=== PATIENT | male | born 1995 | race Caucasian/White ===

== ENCOUNTER 2017-03-06 13:04 | Emergency (ER) | payer SELFPAY ==
--- NOTE | 2017-03-06 14:08 | ER Document Report ---
ED Medical Screen (RME) - General Chief Complaint: Cold Symptoms Stated Complaint: VOMITING Notes: Patient was sent to the emergency room for evaluation of left lower quadrant pain and vomiting for 1 week. paperwork sent with patient states he is acutely tender on exam. He also has a fever and a cough, with rails and decreased breath sounds in the left lower lung leslie per paperwork. I have greeted and performed a rapid initial assessment of this patient. A comprehensive ED assessment and evaluation of the patient, analysis of test results and completion of the medical decision making process will be conducted by additional ED providers. TRAVEL OUTSIDE OF THE [place] IN LAST 30 DAYS: No - Related Data Allergies/Adverse Reactions: No Known Allergies Allergy (Unverified 03/06/17 13:24) Past Medical History - Social History Frequency of alcohol use: None Drug Abuse: None Renal/ Medical History: Denies: Hx Peritoneal Dialysis Surgical Hx: Negative Physical Exam - Vital signs Vitals: Temp Pulse Resp BP Pulse Ox 98.5 F 87 16 165/84 H 98 03/06/17 13:24 03/06/17 13:24 03/06/17 13:24 03/06/17 13:24 03/06/17 13:24 Course - Vital Signs Vital signs: Temp Pulse Resp BP Pulse Ox 98.5 F 87 16 165/84 H 98 03/06/17 13:24 03/06/17 13:24 03/06/17 13:24 03/06/17 13:24 03/06/17 13:24
[2017-03-06 14:57] LABS: ABSOLUTE LYMPHOCYTES (AUTO) 2.2 10^3/uL (0.5-4.7); ABSOLUTE MONOCYTES (AUTO) 0.6 10^3/uL (0.1-1.4); MEAN CORPUSCULAR VOLUME 87 fl (80-97); RED CELL DISTRIBUTION WIDTH 12.3 % (11.5-14.0)
[2017-03-06 15:07] LABS: ABSOLUTE EOSINOPHILS # (AUTO) 0.2 10^3/uL (0.0-0.6); ABSOLUTE NEUT (AUTO) 3.3 10^3/uL (1.7-8.2); BASOPHILS % (AUTO) 0.7 % (0-2); EOSINOPHILS % (AUTO) 3.5 % (0-6); LYMPHOCYTES % (AUTO) 34.8 % (13-45); MEAN CORPUSCULAR HEMOGLOBIN 30.7 pg (27.0-33.4); MEAN CORPUSCULAR HGB CONC 35.2 g/dL (32.0-36.0); MONOCYTES % (AUTO) 8.9 % (3-13); RED BLOOD COUNT 5.85 10^6/uL (4.35-5.55); SEGMENTED NEUTROPHILS % (AUTO) 52.1 % (42-78); WHITE BLOOD COUNT 6.4 10^3/uL (4.0-10.5)
[2017-03-06 15:18] LABS: ALANINE AMINOTRANSFERASE 72 U/L (21-72); ALBUMIN 4.7 g/dL (3.5-5.0); ALKALINE PHOSPHATASE 97 U/L (38-126); ANION GAP 14 (5-19); ASPARTATE AMINO TRANSFERASE 47 U/L (17-59); BILIRUBIN,DIRECT 0.3 mg/dL (0.0-0.4); BILIRUBIN,TOTAL 0.6 mg/dL (0.2-1.3); BLOOD UREA NITROGEN 19 mg/dL (7-20); CALCIUM 9.8 mg/dL (8.4-10.2); CARBON DIOXIDE 26 mmol/L (22-30); CHLORIDE 102 mmol/L (98-107); CREATININE RESULT 0.91 mg/dL (0.52-1.25); GLUCOSE 98 mg/dL (75-110); LIPASE 42.5 U/L (23-300); POTASSIUM 4.7 mmol/L (3.6-5.0); SODIUM 141.9 mmol/L (137-145); TOTAL PROTEIN 8.4 g/dL (6.3-8.2)
[2017-03-06 15:21] LABS: APPEARANCE,URINE TURBID; BILIRUBIN,URINE NEGATIVE (NEGATIVE); GLUCOSE, URINE NEGATIVE (NEGATIVE); KETONES,URINE NEGATIVE (NEGATIVE); LEUKOCYTE ESTERASE,URINE NEGATIVE (NEGATIVE); NITRITE,URINE NEGATIVE (NEGATIVE); PROTEIN,URINE NEGATIVE (NEGATIVE); URINE SPECIFIC GRAVITY 1.026; UROBILINOGEN,URINE NEGATIVE mg/dL (<2.0)
[2017-03-06] MEDS ORDERED: CEFTRIAXONE 1 GM/D5W RTU 50 ML IV ONE (15:56)
--- NOTE | 2017-03-06 15:59 | ER Document Report ---
ED General - General Chief Complaint: Cold Symptoms Stated Complaint: VOMITING Mode of Arrival: Ambulatory Information source: Patient Notes: This is a 21-year-old previously healthy male who presents with a 6 day history of cough, congestion, nausea and vomiting. He is also had subjective fevers at home. He is also had cough and congestion. He was seen today at his primary care and was referred to the emergency department for further evaluation for possible pneumonia. He states that he last ate at breakfast, but vomited later. He has had no diarrhea. He denies any dysuria or hematuria. He states that at the primary care office, he noted left sided abdominal tenderness during exam and that area has been sore since. TRAVEL OUTSIDE OF THE [place] IN LAST 30 DAYS: No - Related Data Allergies/Adverse Reactions: No Known Allergies Allergy (Unverified 03/06/17 13:24) Past Medical History - General Information source: Patient - Social History Smoking Status: Current Every Day Smoker Frequency of alcohol use: None Drug Abuse: None Family History: Reviewed & Not Pertinent Patient has suicidal ideation: No Patient has homicidal ideation: No - Medical History Medical History: Negative Renal/ Medical History: Denies: Hx Peritoneal Dialysis Surgical Hx: Negative Review of Systems - Review of Systems Notes: REVIEW OF SYSTEMS: CONSTITUTIONAL : As per history of present illness EENT: Denies eye, ear, throat, or mouth pain or symptoms. Denies nasal or sinus congestion. CARDIOVASCULAR: Denies chest pain. RESPIRATORY: Cough as per history of present illness. Denies shortness of breath, difficulty breathing, or wheezing. GASTROINTESTINAL: As per history of present illness: GENITOURINARY: Denies difficulty urinating, painful urination, burning, frequency, or blood in urine. MUSCULOSKELETAL: Denies neck or back pain or joint pain or swelling. SKIN: Denies rash or skin lesions. HEMATOLOGIC : Denies easy bruising or bleeding. LYMPHATIC: Denies swollen, enlarged glands. NEUROLOGICAL: Denies altered mental status or loss of consciousness. Denies headache. PSYCHIATRIC: Denies anxiety or stress or depression. ALL OTHER SYSTEMS REVIEWED AND NEGATIVE. Physical Exam - Vital signs Vitals: Temp Pulse Resp BP Pulse Ox 98.5 F 87 16 165/84 H 98 03/06/17 13:24 03/06/17 13:24 03/06/17 13:24 03/06/17 13:24 03/06/17 13:24 - Notes Notes: PHYSICAL EXAMINATION: GENERAL: Well-appearing, well-nourished and in no acute distress. Pleasant and conversant HEAD: Atraumatic, normocephalic. EYES: Pupils equal round and reactive to light, extraocular movements intact, sclera anicteric, conjunctiva are normal. ENT: nares patent, oropharynx clear without exudates. Moist mucous membranes. NECK: Normal range of motion, supple without lymphadenopathy LUNGS: Breath sounds clear to auscultation bilaterally and equal. No wheezes rales or rhonchi. HEART: Regular rate and rhythm without murmurs ABDOMEN: Soft, normoactive bowel sounds. Tender to palpation in the left lower quadrant and left flank. No peritoneal signs. No guarding, no rebound. No masses appreciated. EXTREMITIES: Normal range of motion, no pitting or edema. No cyanosis. NEUROLOGICAL: Cranial nerves grossly intact. Normal speech. No gross focal motor or sensory deficits appreciated. PSYCH: Normal mood, normal affect. SKIN: Warm, Dry, normal turgor, no rashes or lesions noted. Course - Re-evaluation Re-evalutation: 03/06/17 17:28 Patient has been resting comfortably during his ER stay. CT and lab results reviewed. There is no acute finding on the CT exam. Urinalysis does show 10 white blood cells as well as a few white blood cell clumps. Patient received IV Rocephin in the emergency department and will be discharged with oral antibiotics for urinary tract infection. He is encouraged to follow up with his primary care physician. Strict return precautions were discussed. - Vital Signs Vital signs: Temp Pulse Resp BP Pulse Ox 97.2 F 58 L 18 141/77 H 99 03/06/17 18:53 03/06/17 18:53 03/06/17 18:53 03/06/17 18:53 03/06/17 18:53 - Laboratory Result Diagrams: 03/06/17 14:30 03/06/17 14:30 Laboratory results interpreted by me: 03/06/17 03/06/17 03/06/17 14:30 14:30 14:47 RBC 5.85 H Hgb 18.0 H Total Protein 8.4 H Urine Blood SMALL H Discharge - Discharge Clinical Impression: Abdominal pain in male, Elevated blood pressure reading UTI (urinary tract infection) Qualifiers: Urinary tract infection type: site unspecified Hematuria presence: without hematuria Qualified Code(s): N39.0 - Urinary tract infection, site not specified Condition: Stable Disposition: HOME, SELF-CARE Additional Instructions: ABDOMINAL PAIN: There are many causes of abdominal pain. Pain can mean a serious problem requiring surgery (such as appendicitis). It can also be an innocent problem that goes away on its own (such as a viral infection). Often, time must pass to determine the cause of pain. The physician does not feel that hospitalization is necessary, at present. Things may change within the next 24 hours. Call the doctor or come back for re- examination if any problems occur, such as: (1) Pain that becomes more severe, steady, or becomes concentrated in one specific area. Also, pain that is more severe with movement or coughing. (2) Vomiting that persists or becomes more frequent. (3) Blood in the vomitus, urine, or bowel movements. Blood in the stool may have a tarry or black appearance. (4) Shaking chills or fever greater than 100 degrees F. (5) The abdomen becomes more distended or swollen. (6) Bowel movements cease. (7) Failure to improve as expected. TORADOL INJECTION: You have been given an injection of ketorolac tromethamine (Toradol). This is an excellent, safe drug for pain control. It also has potent antiinflammatory action. You should have significant pain relief within about one hour. Toradol is not addicting and is non-sedating. It does not interfere with driving or work. Call or return if you develop itching, hives, shortness of breath, or rash. ANTINAUSEA MEDICATION: You have been given a medication to suppress nausea and vomiting. This type of medication can be given as a shot, pill, or suppository. It will usually last for many hours. Pills and shots usually last six to eight hours, suppositories last about 12 hours. For the typical illness, only one or two doses of the medication may be necessary. Mild lightheadedness may occur. This type of medicine can cause drowsiness. Do not drive or operate dangerous machinery while under its influence. Do not mix with alcohol. See your doctor at once if you have muscle spasms or tightness, or uncontrollable motions (particularly of the neck, mouth, or jaw). Persistent vomiting or severe lightheadedness should also be evaluated by the physician. URINARY TRACT INFECTION: Your evaluation indicates that you have a urinary tract infection. This is due to germs growing in the bladder. This is a common problem. This infection usually responds quickly to antibiotics. Your antibiotic should be taken exactly as prescribed. Drink plenty of fluids -- three to four quarts a day. Occasionally, a bladder anesthetic will be prescribed to help stop the feeling of urgency until the antibiotic has a chance to clear the infection. This may cause your urine to be dark orange. Certain urine infections require a culture. If the doctor obtained a culture, the results will be back in two days. You should call to see if a change in treatment is needed. A repeat urinalysis after you finish treatment is often recommended. The physician will let you know if further testing is required. Call the doctor if you develop fever, chills, flank pain, inability to urinate, or blood in the urine. ANTIBIOTIC THERAPY: You have been given an antibiotic prescription. It's important that you take all the medication, unless instructed otherwise by your physician. Failure to complete the entire course can result in relapse of your condition. Common side effects of antibiotics include nausea, intestinal cramping, or diarrhea. Women may develop vaginal yeast infections, and babies can get yeast (thrush) in the mouth following the use of antibiotics. Contact your physician if you develop significant side effects from this medication. Allergy to this antibiotic can result in hives, wheezing, faintness, or itching. If symptoms of allergy occur, stop the medication and call the doctor. LEVOFLOXACIN: You have been given an antibacterial agent, levofloxacin (Levaquin). This medicine is not related to the penicillins, sulfas, cephalosporins, or tetracyclines. It is often given to patients who are allergic to these drugs. It has been chosen for you either because other drugs are not appropriate, or because of the nature of your problem. Levaquin should not be taken with antacids, as these can decrease its effectiveness. It can be taken without regard to meals. LEVAQUIN SHOULD NOT BE TAKEN BY CHILDREN, NURSING WOMEN, OR WOMEN. Although Levaquin is usually well-tolerated, common side effects can include nausea and diarrhea. Contact your doctor if you experience any unusual symptoms while on this medication, such as joint pain or swelling, shortness of breath, wheezing, faintness, or hives. HIGH BLOOD PRESSURE, NOT TREAT: When your blood pressure was taken today it was elevated. We do not think you need to have your blood pressure treated today. Sometimes, stress or illness causes a temporary elevation of your blood pressure. We suggest that you get your blood pressure measured again during the next few days to see if this elevated blood pressure is more than a temporary abnormality. If your blood pressure is greater than 150/90 on each occasion, you must have treatment. Some simple things you can do to help are: If you have blood pressure medicine but aren't using it regularly, start taking it again. Get some aerobic exercise for at least 20 minutes on a daily basis. (See your doctor before beginning a new exercise program.) Eat a low-fat diet. Lose excess weight. Avoid salty foods and avoid adding salt to any of the foods you eat. Avoid diet pills, decongestants, "energizing" herbs, and other medicines that elevate blood pressure. If left untreated, hypertension greatly enhances your risk for developing heart disease and strokes. Please don't ignore this problem. FOLLOW-UP CARE: If you have been referred to a physician for follow-up care, call the physician s office for an appointment as you were instructed or within the next two days. If you experience worsening or a significant change in your symptoms, notify the physician immediately or return to the Emergency Department at any time for re-evaluation. Prescriptions: Levofloxacin [Levaquin 750 mg Tablet] 750 mg PO DAILY #7 tablet Promethazine HCl [Phenergan 25 mg Tablet] 1 tab PO Q8H PRN #10 tablet PRN Reason: Forms: Elevated Blood Pressure
[2017-03-06] MEDS ORDERED: KETOROLAC TROMETHAMINE INJ/PF 30 MG/1 ML SDV IV ONE (17:32)
[2017-03-06 18:54] VITALS: BP 141/77
== END 2017-03-06 18:58 | disposition home or self-care (01) ==
LOC: ER 13:04
DX: N39.0 Urinary tract infection, site not specified (principal); R05 Cough; R11.2 Nausea with vomiting, unspecified; R03.0 Elevated blood-pressure reading, without diagnosis of hypertension; F17.200 Nicotine dependence, unspecified, uncomplicated
CPT/HCPCS: 99284; 96375; 96365; 36415; 87040; 83690; 85025; 80053; 81001; 71020; 74177; J1885; J0696

== ENCOUNTER 2019-02-06 15:10 | Emergency (ER) | payer SELFPAY ==
--- NOTE | 2019-02-06 15:20 | ER Document Report ---
ED Medical Screen (RME) - General Chief Complaint: Cough Stated Complaint: COUGH Time Seen by Provider: 02/06/19 15:18 Mode of Arrival: Ambulatory Information source: Patient TRAVEL OUTSIDE OF THE [place] IN LAST 30 DAYS: No - HPI Patient complains to provider of: cough; fever Onset: Other - pt. with c/o cough, bodyaches, and low graade fever for the past 2-3 days. Worse today - Related Data Allergies/Adverse Reactions: No Known Allergies Allergy (Verified 02/06/19 15:12) Past Medical History Renal/ Medical History: Denies: Hx Peritoneal Dialysis Physical Exam - Vital signs Vitals: Temp Pulse Resp BP Pulse Ox 99.4 F 100 14 125/82 100 02/06/19 15:14 02/06/19 15:14 02/06/19 15:14 02/06/19 15:14 02/06/19 15:14 Course - Vital Signs Vital signs: Temp Pulse Resp BP Pulse Ox 99.4 F 100 14 125/82 100 02/06/19 15:14 02/06/19 15:14 02/06/19 15:14 02/06/19 15:14 02/06/19 15:14
[2019-02-06 16:13] LABS: ABSOLUTE LYMPHOCYTES (AUTO) 0.7 10^3/uL (0.5-4.7); ABSOLUTE MONOCYTES (AUTO) 1.1 10^3/uL (0.1-1.4); ABSOLUTE NEUT (AUTO) 5.2 10^3/uL (1.7-8.2); BASOPHILS % (AUTO) 0.3 % (0-2); EOSINOPHILS % (AUTO) 0.3 % (0-6); HEMATOCRIT 48.4 % (37.9-51.0); HEMOGLOBIN 17.3 g/dL (13.5-17.0); LYMPHOCYTES % (AUTO) 9.5 % (13-45); MEAN CORPUSCULAR HEMOGLOBIN 31.6 pg (27.0-33.4); MEAN CORPUSCULAR HGB CONC 35.8 g/dL (32.0-36.0); MEAN CORPUSCULAR VOLUME 88 fl (80-97); MONOCYTES % (AUTO) 16.2 % (3-13); PLATELET COUNT 197 10^3/uL (150-450); RED BLOOD COUNT 5.48 10^6/uL (4.35-5.55); RED CELL DISTRIBUTION WIDTH 12.3 % (11.5-14.0); SEGMENTED NEUTROPHILS % (AUTO) 73.7 % (42-78); TOTAL CELLS COUNTED % (AUTO) 100 %
--- NOTE | 2019-02-06 16:23 | RADIOLOGY REPORT (SQ) ---
EXAM DESCRIPTION: CHEST 2 VIEWS COMPLETED DATE/TIME: 02/06/2019 4:15 pm REASON FOR STUDY: cough; fever COMPARISON: Two-view chest 03/06/2017 EXAM PARAMETERS: NUMBER OF VIEWS: two views TECHNIQUE: Digital Frontal and Lateral radiographic views of the chest acquired. RADIATION DOSE: NA LIMITATIONS: none FINDINGS: LUNGS AND PLEURA: No opacities, masses or pneumothorax. No pleural effusion. MEDIASTINUM AND HILAR STRUCTURES: No masses or contour abnormalities. HEART AND VASCULAR STRUCTURES: Heart normal size. No evidence for failure. BONES: No acute findings. HARDWARE: None in the chest. OTHER: No other significant finding. IMPRESSION: NO ACUTE RADIOGRAPHIC FINDING IN THE CHEST. TECHNICAL DOCUMENTATION: JOB ID: [id number] [employer]- All Rights Reserved Reading location - IP/workstation name: [email or web address]
[2019-02-06 16:24] LABS: A TYPE INFLUENZA AG POSITIVE (NEGATIVE); B INFLUENZA AG NEGATIVE (NEGATIVE)
[2019-02-06 16:32] LABS: ALANINE AMINOTRANSFERASE 56 U/L (21-72); ALBUMIN 4.5 g/dL (3.5-5.0); ALKALINE PHOSPHATASE 74 U/L (38-126); ANION GAP 11 (5-19); ASPARTATE AMINO TRANSFERASE 33 U/L (17-59); BILIRUBIN,DIRECT 0.2 mg/dL (0.0-0.4); BILIRUBIN,TOTAL 0.8 mg/dL (0.2-1.3); BLOOD UREA NITROGEN 17 mg/dL (7-20); CARBON DIOXIDE 25 mmol/L (22-30); CHLORIDE 102 mmol/L (98-107); GLUCOSE 93 mg/dL (75-110); POTASSIUM 4.2 mmol/L (3.6-5.0); SODIUM 137.7 mmol/L (137-145)
--- NOTE | 2019-02-06 16:55 | ER Document Report ---
ED General - General Chief Complaint: Cough Stated Complaint: COUGH Time Seen by Provider: 02/06/19 15:18 Mode of Arrival: Ambulatory Notes: Patient is a 23-year-old male who presents to the emergency department with a chief complaint of a cough and vomiting. His symptoms started about 6 days ago. He states that he has also been throwing up on and off. The last time he vomited was last night. He also complains of chills, body aches, and a possible fever, but has not checked his temperature. Last time he took some ibuprofen was on . He does smoke a pack of cigarettes every 2-3 days. Admits to marijuana use. TRAVEL OUTSIDE OF THE [place] IN LAST 30 DAYS: No - Related Data Allergies/Adverse Reactions: No Known Allergies Allergy (Verified 02/06/19 15:12) Past Medical History - General Information source: Patient - Social History Smoking Status: Current Every Day Smoker Family History: Reviewed & Not Pertinent Patient has suicidal ideation: No Patient has homicidal ideation: No Renal/ Medical History: Denies: Hx Peritoneal Dialysis Review of Systems - Review of Systems Notes: REVIEW OF SYSTEMS: CONSTITUTIONAL : See HPI EENT: See HPI CARDIOVASCULAR: Denies chest pain. RESPIRATORY: See HPI GASTROINTESTINAL: See HPI GENITOURINARY: Denies difficulty urinating, burning, blood in urine, urgency or frequency. MUSCULOSKELETAL: Denies neck and back pain. Denies joint pain or swelling. SKIN: Denies rash, itchiness, or lesions HEMATOLOGIC : Denies easy bruising or bleeding. LYMPHATIC: Denies swollen, painful, enlarged glands. NEUROLOGICAL: Denies no numbness or tingling denies weakness. Denies headache. Denies altered mental status. Denies alteration in speech. PSYCHIATRIC: Denies stress, anxiety, alteration in sleep patterns, or depression. All other systems reviewed and negative. Physical Exam - Vital signs Vitals: Temp Pulse Resp BP Pulse Ox 99.4 F 100 14 125/82 100 02/06/19 15:14 02/06/19 15:14 02/06/19 15:14 02/06/19 15:14 02/06/19 15:14 - Notes Notes: PHYSICAL EXAMINATION: GENERAL: Appears ill, healthy, well-nourished, no acute distress. HEAD: Normocephalic, atraumatic. EYES: PERRL, conjunctiva normal, all extraocular movements intact, sclera nonicteric ENT: Moist mucous membranes. NECK: Supple, no noticeable swelling, redness, rash. Normal range of motion. LUNGS: Equal breath sounds bilaterally and clear to auscultation. No wheezes rales or rhonchi. CARDIOVASCULAR: S1-S2, regular rate, regular rhythm. Radial pulses 2+, normal. ABDOMEN: Normoactive bowel sounds. Soft, nontender, no guarding, no rebound tenderness, and no masses palpated. EXTREMITIES: Normal strength and range of motion, no pitting or edema. No cyanosis. NEUROLOGICAL: Moves all extremities upon command. Strength 5/5 in all extremities. PSYCH: Normal mood, normal affect. SKIN: Warm, dry. No rash, lesions, ulcerations noted. Normal skin turgor. Course - Re-evaluation Re-evalutation: 02/06/19 16:55 Patient's chest x-ray is negative for any acute findings. No pneumonia noted. He does have a positive influenza screen. His hematology is unremarkable, other than his hemoglobin being 17, which is most likely due to dehydration. 02/06/19 17:18 I have discussed with the patient that he has the flu. He will home with Tessalon Perles, ibuprofen, Tylenol, oral hydration, and supportive care. He is in agreement with this plan. Verbal discharge instructions were given to the patient. They verbalized understanding. They are stable for discharge. - Vital Signs Vital signs: Temp Pulse Resp BP Pulse Ox 98.5 F 92 18 144/83 H 95 02/06/19 17:33 02/06/19 17:33 02/06/19 17:33 02/06/19 17:33 02/06/19 17:33 - Laboratory Result Diagrams: 02/06/19 15:51 02/06/19 15:51 Laboratory results interpreted by me: 02/06/19 15:51 Hgb 17.3 H Lymphocytes % 9.5 L Monocytes % 16.2 H Discharge - Discharge Clinical Impression: Influenza A, Cough Vomiting Qualifiers: Vomiting type: unspecified Vomiting Intractability: non-intractable Nausea presence: with nausea Qualified Code(s): R11.2 - Nausea with vomiting, unspecified Condition: Stable Disposition: HOME, SELF-CARE Instructions: Influenza ([facility]) [id number], Viral Syndrome ([facility]), Vomiting ([facility]) Additional Instructions: You were seen today in the emergency department for a cough, vomiting, and pain in your chest. You have the flu. The flu can last 7-10 days. Treatment for the flu is supportive care. Take acetaminophen 1000 mg and ibuprofen 600 mg every 6 hours for pain/fever. You have been given Tessalon Perles, medication for your cough. Take as directed. You have also been given Zofran, medication for nausea and vomiting. You may take 1 tablet every 4-6 hours as needed for nausea or vomiting. If you have worsening symptoms, develop shortness of breath, are unable to eat or drink, or have any symptoms that are worrisome to you, please return to the emergency department. Smoking both cigarettes and marijuana makes it harder to recover from the flu. Please think about quitting both of these to help with your overall health and decrease your risk of stroke and heart attack. Prescriptions: Benzonatate [Tessalon Perle 100 mg Capsule] 100 mg PO Q8HP PRN #40 cap PRN Reason: Forms: Smoking Cessation Education
[2019-02-06] MEDS ORDERED: BENZONATATE 100 MG CAPSULE PO ONE (17:14)
[2019-02-06] MEDS ORDERED: ACETAMINOPHEN 325 MG TABLET PO ONE (17:14)
[2019-02-06] MEDS ORDERED: IBUPROFEN 600 MG TABLET PO ONE (17:14)
[2019-02-06] MEDS ORDERED: ONDANSETRON ODT 4 MG TAB (6 TAB/ER DISP) PO PRN (17:15)
[2019-02-06 17:33] VITALS: BP 144/83
== END 2019-02-06 17:37 | disposition home or self-care (01) ==
LOC: ER 15:10
DX: J10.1 Influenza due to other identified influenza virus with other respiratory manifestations (principal); R05 Cough; R11.2 Nausea with vomiting, unspecified; R68.83 Chills (without fever); R52 Pain, unspecified; F17.210 Nicotine dependence, cigarettes, uncomplicated
CPT/HCPCS: 36415; 71046; 80053; 85025; 87804; 99283

== ENCOUNTER 2019-12-03 18:30 | Emergency (ER) | payer SELFPAY ==
[2019-12-03] MEDS ORDERED: ACETAMINOPHEN 325 MG TABLET PO ONE (20:24)
[2019-12-03] MEDS ORDERED: IBUPROFEN 800 MG TABLET PO ONE (20:25)
[2019-12-03] MEDS ORDERED: ONDANSETRON 4 MG TAB.RAPDIS PO ONE (20:43)
--- NOTE | 2019-12-03 20:46 | ER Document Report ---
ED Medical Screen (RME) - General Chief Complaint: Flu Symptoms Stated Complaint: FEVER,COUGH,CONGESTION Time Seen by Provider: 12/03/19 20:39 Notes: Patient is a 24-year-old male who presents to the emergency department with a chief complaint of weakness. Patient reports he has had a productive cough with yellow sputum for about 3 days. He reports generalized weakness, joint pain, nausea and 3 episodes of vomiting today. Patient denies diarrhea. Patient reports a runny nose. Patient reports he was recently exposed to the influenza B from a family member. Patient did not receive the influenza vaccine this year. TRAVEL OUTSIDE OF THE [place] IN LAST 30 DAYS: No - Related Data Allergies/Adverse Reactions: No Known Allergies Allergy (Verified 02/06/19 15:12) Past Medical History - Social History Chew tobacco use (# tins/day): No Frequency of alcohol use: Occasional Drug Abuse: None Renal/ Medical History: Denies: Hx Peritoneal Dialysis Physical Exam - Vital signs Vitals: Temp Pulse Resp BP Pulse Ox 100.7 F H 108 H 18 169/86 H 98 12/03/19 18:36 12/03/19 18:36 12/03/19 18:36 12/03/19 18:36 12/03/19 18:36 - Respiratory Respiratory status: No respiratory distress Chest status: Nontender Breath sounds: Normal Chest palpation: Normal Course - Re-evaluation Re-evalutation: 12/03/19 20:46 I have greeted and performed a rapid initial assessment of this patient. A comprehensive ED assessment and evaluation of the patient, analysis of test results and completion of the medical decision making process will be conducted by additional ED providers. - Vital Signs Vital signs: Temp Pulse Resp BP Pulse Ox 101.3 F H 108 H 18 169/86 H 98 12/03/19 20:21 12/03/19 18:36 12/03/19 18:36 12/03/19 18:36 12/03/19 18:36
--- NOTE | 2019-12-03 21:21 | RADIOLOGY REPORT (SQ) ---
EXAM DESCRIPTION: X-RAY CHEST TWO VIEWS CLINICAL HISTORY: 24 years Male productive cough, fever COMPARISON: None TECHNIQUE: PA and lateral chest x-rays at 2105 hours on 12/03/2019. FINDINGS: The lungs are mildly overinflated. There is a small patchy infiltrate in the left lower lung field. The costophrenic sulci are sharp. No pneumothorax. The heart is normal in size with normal pulmonary vascularity. No acute bony abnormalities are seen. IMPRESSION: Suspect an early left lower lobe pneumonia. Mildly overinflated lungs.
[2019-12-03 21:50] LABS: A TYPE INFLUENZA AG NEGATIVE (NEGATIVE); B INFLUENZA AG POSITIVE (NEGATIVE)
[2019-12-04] MEDS ORDERED: AZITHROMYCIN 250 MG TABLET PO ONE (00:34)
[2019-12-04 02:24] VITALS: BP 138/90
--- NOTE | 2019-12-04 05:34 | ER Document Report ---
Entered by RACHAEL DUMONT SCRIBE 12/04/19 0004 Acting as scribe for:OLI COTTER IV, MD ED Flu Like - General Chief Complaint: Flu Symptoms Stated Complaint: FEVER,COUGH,CONGESTION Time Seen by Provider: 12/03/19 20:39 Mode of Arrival: Ambulatory Information source: Patient Notes: This 24 year old male patient with no significant past medical history presents to the ED today with complaints of flu-like symptoms that began x3 days ago. Patient reports generalized weakness, joint pain, productive cough with yellow sputum, nausea, vomiting x3 times x1 day ago, and nasal discharge. Patient denies diarrhea. Patient states that he did come into contact with a family member who has influenza B. Patient states that he has not received a flu shot this year. TRAVEL OUTSIDE OF THE [place] IN LAST 30 DAYS: No - Related Data Allergies/Adverse Reactions: No Known Allergies Allergy (Verified 02/06/19 15:12) Past Medical History - General Information source: Patient - Social History Smoking Status: Unknown if Ever Smoked Cigarette use (# per day): No Chew tobacco use (# tins/day): No Smoking Education Provided: No Frequency of alcohol use: Occasional Drug Abuse: None Family History: Reviewed & Not Pertinent Patient has suicidal ideation: No Patient has homicidal ideation: No Past Surgical History: Reports: None Review of Systems - Review of Systems Constitutional: See HPI, Weakness EENT: See HPI, Nose discharge Cardiovascular: No symptoms reported Respiratory: See HPI, Cough, Sputum Gastrointestinal: See HPI, Nausea, Vomiting. denies: Diarrhea Genitourinary: No symptoms reported Male Genitourinary: No symptoms reported Musculoskeletal: See HPI, Joint pain Skin: No symptoms reported Hematologic/Lymphatic: No symptoms reported Neurological/Psychological: No symptoms reported -: Yes All other systems reviewed and negative Physical Exam - Vital signs Vitals: Temp Pulse Resp BP Pulse Ox 100.7 F H 108 H 18 169/86 H 98 12/03/19 18:36 12/03/19 18:36 12/03/19 18:36 12/03/19 18:36 12/03/19 18:36 - General General appearance: Alert, Other - Appears fatigued, but nontoxic - HEENT Head: Normocephalic, Atraumatic Eyes: Normal Pupils: PERRL - Respiratory Respiratory status: No respiratory distress Chest status: Nontender Breath sounds: Normal Chest palpation: Normal - Cardiovascular Rhythm: Regular Heart sounds: Normal auscultation Murmur: No - Abdominal Inspection: Normal Distension: No distension Bowel sounds: Normal Tenderness: Nontender - Abdomen soft Organomegaly: No organomegaly - Back Back: Normal, Nontender - Extremities General upper extremity: Normal inspection General lower extremity: Normal inspection - Neurological Neuro grossly intact: Yes - Psychological Associated symptoms: Normal affect, Normal mood - Skin Skin Temperature: Warm Skin Moisture: Dry Skin Color: Normal Course - Re-evaluation Re-evalutation: 12/04/19 00:37 Results of ED MSE discussed with patient. Patient states symptoms started approximately 3 days ago. Patient states that he does not have insurance to help him cover the cost of medications. This MD discussed with the patient risk and benefits of using Tamiflu and cost associated with it. - Vital Signs Vital signs: Temp Pulse Resp BP Pulse Ox 97.7 F 80 20 138/90 H 96 12/04/19 01:20 12/04/19 01:20 12/04/19 01:20 12/04/19 01:20 12/04/19 01:20 - Diagnostic Test Radiology reviewed: Reports reviewed Discharge - Discharge Clinical Impression: Influenza B Pneumonia Qualifiers: Pneumonia type: due to unspecified organism Laterality: left Lung location: lower lobe of lung Qualified Code(s): J18.9 - Pneumonia, unspecified organism Condition: Good Disposition: HOME, SELF-CARE Instructions: Influenza ([facility]) [id number] Additional Instructions: Return to the Emergency Department without delay if any worse. HOME CARE INSTRUCTIONS & INFORMATION: Thank you for choosing us for your medical needs. We hope you're satisfied with the care you received. After you l eave, you must properly care for your problem and, at the same time, observe its progress. Any condition can change. Some illnesses can change rapidly over hours or days. If your condition worsens, return to the Emergency Department or see your physician promptly. ABOUT YOUR X-RAYS AND EKG'S: If you had an EKG or X-rays taken, they have been read by the Emergency Physician. The X-rays and EKG's will also be read by a Radiologist or Foil Spooler within 24 hours. If discrepancies are noted, you will be notified by telephone. Please be certain the ED has a correct telephone number & address where you can be reached. Also, realize that some fractures or abnormalities do not show up on initial X-rays. If your symptoms continue, see your physician. ABOUT YOUR LABORATORY TEST: If you had laboratory tests, the results have been reviewed by the Emergency Physician. Some test results (for example cultures) may not be available for several days. You will be contacted if any test result shows you need additional treatment. Please be certain the ED has a correct telephone number and address where you can be reached. ABOUT YOUR MEDICATIONS: You will receive instructions on how to take your medicine on the prescription label you receive. Additional information may be provided by the Pharmacy. If you have questions afterwards, call the ED for clarification or further instructions. Some prescribed medications may cause drowsiness. Do not perform tasks such as driving a car or operating machinery without consulting your Pharmacist. If you feel you need a refill of pain medication, your condition will need re-evaluation. Please do not call for a refill of any medication. ABOUT YOUR SIGNATURE: Signature of this document acknowledges to followin. Understanding that you received emergency treatment and that you may be released before al medical problems are known or treated. Please be certain the ED has a correct phone number & address where you can be reached. 2. Acknowledgement that you will arrange for follow-up care as recommended. 3. Authorization for the Emergency Physician to provide information to your follow-up Physician in order to maximize your care. AT ANY TIME, IF YOUR SYMPTOMS CHANGE SIGNIFICANTLY OR WORSEN OR YOU DEVELOP NEW SYMPTOMS, RETURN TO THE EMERGENCY DEPARTMENT IMMEDIATELY FOR RE-EVALUATION. OUR GOAL IS TO PROVIDE EXCELLENT MEDICAL CARE! WE HOPE THAT WE HAVE MET YOUR EXPECTATIONS DURING YOUR EMERGENCY DEPARTMENT VISIT AND THAT YOU FEEL YOU HAVE RECEIVED EXCELLENT CARE! Prescriptions: Azithromycin 250 mg PO DAILY 4 Days #4 tablet Forms: Return to Work I personally performed the services described in the documentation, reviewed and edited the documentation which was dictated to the scribe in my presence, and it accurately records my words and actions.
== END 2019-12-04 01:25 | disposition home or self-care (01) ==
LOC: ER 18:30
DX: J18.9 Pneumonia, unspecified organism (principal); J11.1 Influenza due to unidentified influenza virus with other respiratory manifestations; R50.9 Fever, unspecified; R53.1 Weakness; R11.2 Nausea with vomiting, unspecified
CPT/HCPCS: 99283; 87804; 71046; S0119

== ENCOUNTER 2020-09-21 14:09 | Emergency (ER) | payer MEDICAID ==
[2020-09-21] MEDS ORDERED: RINGERS SOLUTION,LACTATED 1,000 ML IV ONE ×2 (14:59→19:42)
--- NOTE | 2020-09-21 15:25 | RADIOLOGY REPORT (SQ) ---
EXAM DESCRIPTION: CHEST SINGLE VIEW IMAGES COMPLETED DATE/TIME: 09/21/2020 3:09 pm REASON FOR STUDY: Overdose, vomiting COMPARISON: 12/03/2019 EXAM PARAMETERS: NUMBER OF VIEWS: One view. TECHNIQUE: Single frontal radiographic view of the chest acquired. RADIATION DOSE: NA LIMITATIONS: Low lung volumes. FINDINGS: LUNGS AND PLEURA: No opacities, masses or pneumothorax. No pleural effusion. MEDIASTINUM AND HILAR STRUCTURES: No masses. Contour normal. HEART AND VASCULAR STRUCTURES: Heart normal in size. Normal vasculature. BONES: No acute findings. HARDWARE: None in the chest. OTHER: No other significant finding. IMPRESSION: NO ACUTE RADIOGRAPHIC FINDING IN THE CHEST. TECHNICAL DOCUMENTATION: JOB ID: [id number] 2010 [employer]- All Rights Reserved Reading location - IP/workstation name: [email or web address]
[2020-09-21 15:42] LABS: ABSOLUTE LYMPHOCYTES (AUTO) 2.4 10^3/uL (0.5-4.7); ABSOLUTE MONOCYTES (AUTO) 1.1 10^3/uL (0.1-1.4); ABSOLUTE NEUT (AUTO) 14.2 10^3/uL (1.7-8.2); BASOPHILS % (AUTO) 0.3 % (0-2); EOSINOPHILS % (AUTO) 0.2 % (0-6); HEMATOCRIT 50.7 % (37.9-51.0); HEMOGLOBIN 17.5 g/dL (13.5-17.0); LYMPHOCYTES % (AUTO) 13.5 % (13-45); MEAN CORPUSCULAR HEMOGLOBIN 30.2 pg (27.0-33.4); MEAN CORPUSCULAR HGB CONC 34.6 g/dL (32.0-36.0); MEAN CORPUSCULAR VOLUME 87 fl (80-97); MONOCYTES % (AUTO) 6.3 % (3-13); PLATELET COUNT 326 10^3/uL (150-450); RED CELL DISTRIBUTION WIDTH 12.3 % (11.5-14.0); SEGMENTED NEUTROPHILS % (AUTO) 79.7 % (42-78); TOTAL CELLS COUNTED % (AUTO) 100 %; WHITE BLOOD COUNT 17.8 10^3/uL (4.0-10.5)
[2020-09-21 15:52] LABS: ALBUMIN 4.9 g/dL (3.5-5.0); ALKALINE PHOSPHATASE 105 U/L (38-126); ANION GAP 18 (5-19); ASPARTATE AMINO TRANSFERASE 32 U/L (17-59); BILIRUBIN,DIRECT 0.2 mg/dL (0.0-0.4); BILIRUBIN,TOTAL 0.7 mg/dL (0.2-1.3); BLOOD UREA NITROGEN 21 mg/dL (7-20); CALCIUM 10.1 mg/dL (8.4-10.2); CARBON DIOXIDE 21 mmol/L (22-30); CHLORIDE 100 mmol/L (98-107); CREATINE KINASE 175 U/L (55-170); GLUCOSE 89 mg/dL (75-110); POTASSIUM 3.7 mmol/L (3.6-5.0); TOTAL PROTEIN 8.3 g/dL (6.3-8.2)
[2020-09-21 17:02] LABS: APPEARANCE,URINE CLEAR; BILIRUBIN,URINE NEGATIVE (NEGATIVE); COLOR,URINE YELLOW; GLUCOSE, URINE NEGATIVE (NEGATIVE); KETONES,URINE 20 mg/dL (NEGATIVE); LEUKOCYTE ESTERASE,URINE NEGATIVE (NEGATIVE); NITRITE,URINE NEGATIVE (NEGATIVE); PROTEIN,URINE NEGATIVE (NEGATIVE); URINE SPECIFIC GRAVITY 1.023; UROBILINOGEN,URINE NEGATIVE mg/dL (<2.0)
--- NOTE | 2020-09-21 17:08 | ER Document Report ---
Entered by ALISON FREEMAN SCRIBE 09/21/20 1458 Acting as scribe for:LOVE MARIE MD ED Psych Disorder / Suicide - General Stated Complaint: POSSIBLE OVERDOSE Time Seen by Provider: 09/21/20 14:53 Mode of Arrival: Medic Information source: Emergency Med Personnel Cannot obtain history due to: Altered mental status Notes: This 25 year old male patient presents to the emergency department today with complaints of being found "asleep in a vehicle" per EMS. EMS reports they were called out by family after the patient was found sleeping in a car with two empty bottles of an unknown medication beside him. On the EMS run sheet there is a note that one of the medications was Xanax. The patient became combative for EMS so he was given 200 mg of ketamine prior to arrival. TRAVEL OUTSIDE OF THE [place] IN LAST 30 DAYS: No - Related Data Allergies/Adverse Reactions: No Known Allergies Allergy (Verified 02/06/19 15:12) Past Medical History - General Information source: [facility] Records Cannot obtain history due to: Altered mental status - Social History Smoking Status: Current Every Day Smoker Cigarette use (# per day): Yes Frequency of alcohol use: Social Drug Abuse: Marijuana Occupation: unemployed Lives with: Family Family History: Reviewed & Not Pertinent - Medical History Medical History: Negative Surgical Hx: Negative Review of Systems - Review of Systems -: Yes ROS unobtainable due to patient's medical condition Physical Exam - Vital signs Vitals: Temp 98.0 F 09/21/20 14:10 - General General appearance: Unresponsive - wretching,jerking - HEENT Head: Normocephalic, Atraumatic, Other - if head isn't held up it flops down Eyes: Normal - When the eyelids are lifted the pupils and sclera are grossly normal appearing Extraocular movements intact: Yes Eyelashes: Normal Pupils: PERRL - 2mm and reactive Neck: Other - Patient is sitting at about a 60 degree angle, the nurses have to hold his head up as it will flop down if they let go. He was in this position because of frequent wretching. - Respiratory Respiratory status: No respiratory distress Chest status: Nontender - Cardiovascular Rhythm: Tachycardia Heart sounds: Normal auscultation Murmur: No - Abdominal Inspection: Normal Distension: No distension Bowel sounds: Normal - Back Back: Normal - Extremities General upper extremity: Normal inspection. No: Edema General lower extremity: Normal inspection. No: Edema - Neurological Notes: Patient given ketamine prior to arrival. He is minimally responsive to noxious stimulus. - Psychological Associated symptoms: Other - unable to assess - Skin Skin Temperature: Warm Skin Moisture: Dry Skin Color: Normal Course - Re-evaluation Re-evalutation: 09/21/20 17:49 Patient's drug screen is positive for amphetamine, benzodiazepines, cocaine, and marijuana. 09/21/20 20:55 Patient is awake, alert and oriented at this time. His mother is able to take him home. 09/21/20 20:[address] scan of the head is read as findings concerning for possible very subtle diffuse bilateral cerebral edema and clinical correlation will be helpful. There is no evidence of significant intracranial hemorrhage or other focal acute abnormality. A follow-up MRI would be helpful if clinical findings are equivocal or if there is persistent clinical concern. The radiologist reported higher up in the report that the findings are worrisome for diffuse cerebral edema, but are subtle and artifact as possible with c linical correlation advised. The patient is alert, he does not want to talk about his drug abuse. 09/21/20 21:06 The patient's mother is here and tells me that the patient is legally blind and can make out shapes and forms but cannot really discern people's faces clearly. She states she was not aware of his substance abuse. 09/21/20 21:13 I discussed the case with the radiologist, he stated the findings may be due to the low radiation dosing used causing artifact. He states if these findings w ere real it would suggest something like a prolonged hypoxic event such as drowning. There is no history of that. The patient did not have opiates in his system. At this time he has been up and walk to the bathroom the back. He is alert and oriented. He states he feels better and is ready to go home. - Vital Signs Vital signs: Temp Pulse Resp BP Pulse Ox 98.0 F 14 121/57 L 99 09/21/20 14:10 09/21/20 19:16 09/21/20 19:16 09/21/20 19:16 - Laboratory Result Diagrams: 09/21/20 14:18 09/21/20 14:18 Laboratory results interpreted by me: 09/21/20 09/21/20 09/21/20 14:18 14:18 16:11 WBC 17.8 H RBC 5.80 H Hgb 17.5 H Absolute Neuts (auto) 14.2 H Seg Neutrophils % 79.7 H Carbon Dioxide 21 L BUN 21 H Creatine Kinase 175 H Total Protein 8.3 H Urine Ketones 20 H Urine Blood MODERATE H - Diagnostic Test Radiology reviewed: Image reviewed, Reports reviewed - Chest x-ray does not show acute radiographic findings. Noncontrasted CT scan of the head is read as concerning for possible very subtle diffuse bilateral cerebral edema and clinical correlation will be helpful. There is no evidence of significant intracranial hemorrhage or other focal acute abnormalities. A follow-up MRI would be helpful if clinical findings are equivocal or if there is persistent clinical concern. - EKG Interpretation by Me EKG shows normal: Sinus rhythm, [place], Intervals, QRS Complexes, ST-T Waves Rate: Tachycardia - 120 [place]/QRS: IVCD P Waves: LAE Discharge - Discharge Clinical Impression: Multiple substance abuse, Cocaine abuse, Marijuana abuse, Benzodiazepine abuse Altered mental status Qualifiers: Altered mental status type: unspecified Qualified Code(s): R41.82 - Altered mental status, unspecified Condition: Stable Disposition: HOME, SELF-CARE Additional Instructions: Cocaine Abuse: Cocaine causes many dangerous medical problems. Problems can occur even with "usual" amounts. Cocaine affects judgement, creating a sense of invulnerability. Cocaine users often make bad decisions that seem "great" at the time. Most cocaine users eventually will be hurt by bad job performance, damaged personal relations, crime, and unsafe sexual practices. Toxic effects of cocaine can include seizures, hallucinations, delusions, high blood pressure, heart damage, or sudden . There's always the risk of a "bad batch." But heart attacks, brain hemorrhages, or cardiac arrest can occur unpredictably even with "normal" use. Injection of cocaine is risky for abscesses, endocarditis (heart infection), pneumonia, and AIDS. Withdrawal from cocaine often causes anxiety and drug cravings. Some users become paranoid and psychotic. Many treatment programs are available, but you must make the decision to quit. You were brought into the emergency room unresponsive due to your drug use. Your drug screen was positive for amphetamines, cocaine, benzodiazepines, and marijuana. You should reconsider your choices, as this will ultimately lead to a bad outcome. For today you should drink plenty fluids get plenty of rest and try to stay away from drugs. Follow-up with a local primary care provider or return to the emergency room if you have any further problems. I personally performed the services described in the documentation, reviewed and edited the documentation which was dictated to the scribe in my presence, and it accurately records my words and actions.
[2020-09-21 17:14] LABS: URINE BARBITURATES SCREEN NEGATIVE; URINE METHADONE SCREEN NEGATIVE; URINE PHENCYCLIDINE SCREEN NEGATIVE
[2020-09-21 17:24] LABS: URINE BENZODIAZEPINES SCREEN UNCONFIRMED POSITIVE; URINE COCAINE SCREEN UNCONFIRMED POSITIVE; URINE MARIJUANA (THC) SCREEN UNCONFIRMED POSITIVE
--- NOTE | 2020-09-21 20:55 | RADIOLOGY REPORT (SQ) ---
EXAM DESCRIPTION: CT HEAD WITHOUT IV CONTRAST COMPLETED DATE/TME: 09/21/2020 20:29 CLINICAL HISTORY: 25 years, Male, Multiple substance abuse, altered mental status EXAM DESCRIPTION: CT HEAD WITHOUT CLINICAL HISTORY: Multiple substance abuse, altered mental status COMPARISON: None Available TECHNIQUE: Contiguous axial CT images of the head were obtained. Coronal and sagittal reconstructions were created from the axial data. This exam was performed according to our departmental dose-optimization program, which includes automated exposure control, adjustment of the mA and/or kV according to patient size and/or use of iterative reconstruction technique. FINDINGS: There is crowding of structures at the foramen magnum and the cerebellar tonsils are mildly low-lying. There is possible poorly defined allen-white differentiation diffusely and bilaterally. Volume of the extra-axial CSF spaces, basal cisterns, and of the ventricles is borderline small. These findings are worrisome for diffuse cerebral edema, but are subtle and artifact is possible. Clinical correlation is advised. There is no other evidence of acute mass, mass effect, midline shift or hemorrhage. The ventricles and extra-axial CSF spaces are unremarkable. The brain parenchyma appears otherwise normal for the patient's age. No acute abnormalities of the bones is seen. IMPRESSION: Findings are concerning for possible very subtle diffuse bilateral cerebral edema and clinical correlation will be helpful. Follow-up or MRI would be helpful if clinical findings are equivocal or if there is persistent clinical concern. No evidence of significant intracranial hemorrhage or other focal acute abnormality.
[2020-09-21 21:36] VITALS: BP 134/86
--- NOTE | 2020-09-22 09:16 | EKG REPORT ---
SEVERITY:- ABNORMAL ECG - SINUS TACHYCARDIA PROBABLE LEFT ATRIAL ABNORMALITY NONSPECIFIC INTRAVENTRICULAR CONDUCTION DELAY : Confirmed by: Gael Banks 22-Sep-2020 09:16:01
== END 2020-09-21 21:37 | disposition home or self-care (01) ==
LOC: ER 14:09
DX: F14.10 Cocaine abuse, uncomplicated (principal); F12.10 Cannabis abuse, uncomplicated; F19.10 Other psychoactive substance abuse, uncomplicated; R41.82 Altered mental status, unspecified; F17.210 Nicotine dependence, cigarettes, uncomplicated
CPT/HCPCS: 93005; 99285; 96360; 96361; 36415; 82550; 85025; 80053; 81001; 84484; 80307; 71045; 70450; 93010; J7120